=== PATIENT | male | born 1975 | race Caucasian/White ===

== ENCOUNTER 2024-01-02 16:09 | Outpatient (CLI) | payer OTHER, SELFPAY | END 2024-01-02 16:10 | disposition home or self-care (01) | LOC: SLEEP 16:13 | PROVIDERS: Visit Provider Family Medicine | DX: G47.33 Obstructive sleep apnea (adult) (pediatric) (principal) | CPT/HCPCS: G0399 ==

== ENCOUNTER 2024-05-24 16:39 | Emergency (ER) | payer OTHER, SELFPAY ==
[2024-05-24 17:24] VITALS: BP 152/98; PULSE 94; RESP 18; TEMP 36.7; O2SAT 100; BMI 32.3
--- NOTE | 2024-05-24 19:01 | W.ED.ANIMALB ---
HPI - Animal Bite General: Chief Complaint: Animal Bite Stated Complaint: bit by dog Time Seen by Provider: 05/24/24 18:59 Source: patient Mode of arrival: ambulatory Limitations: no limitations History of Present Illness: Patient is a nice 49-year-old male who presents to the ED today for evaluation following a dog bite. 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 He states he did contact the police and tried to contact the dog's homeowner association manager however was unsuccessful. He is unsure on the animal's immunization status. He states the animal seemed to be an outdoor pet. Patient's last tetanus is unknown. States bite did penetrate through the pants he was wearing. complaint: animal bite Onset (ago): hour(s) Animal: dog Description of animal: immunizations unknown Mechanism: bite Location: buttocks Associated symptoms: Reports no associated symptoms Related Data Previous Rx's ?Medication ?Instructions ?Recorded amoxicillin 875 mg-potassium 1 tab PO BID #14 tabs 05/24/24 clavulanate 125 mg tablet Allergies Allergy/AdvReac Type Severity Reaction Status Date / Time Sulfa (Sulfonamide Allergy Unknown Verified 05/24/24 17:26 Antibiotics) Review of Systems Skin/Breast: Reports: other (dog bite to R buttock) Physical Exam Const: COMMON NORMALS: no acute distress, average body habitus, patient oriented x3, no limitations, healthy appearing, alert and well nourished Back/Pelvis: BACK IMAGE (MALE):  1. small abrasion/minimal puncture wound; no closure indicated Neuro: COMMON NORMALS: patient oriented x3 SENSORIUM/ORIENTATION: Yes alert Skin: NARRATIVE SKIN EXAM: see above Course Vital Signs: Vital signs: Vital Signs Temperature 98.1 F 05/24/24 17:24 Pulse Rate 94 05/24/24 17:24 Respiratory Rate 18 05/24/24 17:24 Blood Pressure 152/98 05/24/24 17:24 Pulse Oximetry 100 05/24/24 17:24 Oxygen Delivery Me thod Room Air 05/24/24 17:24 MDM - Animal Bite Medical Decision Making Tetanus will be updated. He will be placed on prophylactic antibiotics. Immunization status of the animal is unknown. He does not know if the animal could be quarantined. We will start him on rabies PEP. Infection precautions discussed. 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 Differential Diagnosis Likely bite by animal and dog bite Medical Records I reviewed the patient's medical records. No radiology studies performed this visit Discharge Plan Discharge Patient Disposition: Home Clinical Impression: Dog bite of right buttock Qualifiers: Encounter type: initial encounter Qualified Code(s): S31.815A - Open bite of right buttock, initial encounter Condition: Stable Prescriptions: New amoxicillin-pot clavulanate 875-125 mg tablet 1 tab PO BID Qty: 14 0RF Discharge Orders: Discharge ED (Routine); Ordered 05/24/24 Ordered By: Lana Red Patient Instructions: Rabies Vaccine (By injection), Rabies Immune Globulin (By injection), Animal Bite (ED) Activity Restrictions/Additional Instructions: As we discussed, we will place you on prophylactic antibiotics to avoid infection. You were given a dose this evening as most pharmacies are closed. You will have a prescription that you can fill in the morning. Your tetanus has been updated. We have started you on rabies post-exposure prophylaxis. You should receive a schedule at time of discharge for your day 3, 7, and 14 shots to be completed at our infusion center. Print Language: [place] Zealander Coding Level of Care Code ED Atm Mechanic for Amilcar Dang
[2024-05-24] MEDS: rabies vaccine 2.5 unit SDV IM (19:39)
[2024-05-24] MEDS: rabies IG 300 unit/mL SDV 1 mL 2100 UNIT IM (19:40)
[2024-05-24] MEDS: amoxicillin-clav 875-125 mg Tablet 1 TAB PO (19:40)
[2024-05-24] MEDS: tetanus-dipt-pertussis 0.5 mL SDV IM (19:40)
== END 2024-05-24 19:57 | disposition home or self-care (01) ==
PROVIDERS: Emergency Provider Physician Assistant
DX: S31.815A Open bite of right buttock, initial encounter (principal); W54.0XXA Bitten by dog, initial encounter; Z23 Encounter for immunization; Z29.14 Encounter for prophylactic rabies immune globulin; Z20.3 Contact with and (suspected) exposure to rabies
CPT/HCPCS: 90375; 90471; 90675; 90715; 96372; 99283; J9999

== ENCOUNTER 2024-06-07 08:00 | Oncology outpatient (recurring) (ONCR) | payer OTHER, SELFPAY ==
[2024-05-27] MEDS: rabies vaccine 2.5 unit SDV IM (16:10)
[2024-05-31] MEDS: rabies vaccine 2.5 unit SDV IM (08:11)
[2024-05-31 08:13] VITALS: BP 147/82; PULSE 84; TEMP 36.3; O2SAT 96
[2024-06-07] MEDS: rabies vaccine 2.5 unit SDV IM (08:16)
[2024-06-07 08:17] VITALS: BP 146/88; PULSE 97; TEMP 36.6; O2SAT 98
== END 2024-06-12 23:59 | disposition home or self-care (01) ==
PROVIDERS: Visit Provider Physician Assistant
DX: Z23 Encounter for immunization; Z20.3 Contact with and (suspected) exposure to rabies; S31.815A Open bite of right buttock, initial encounter; W54.0XXA Bitten by dog, initial encounter; Y99.0 Civilian activity done for income or pay; Z53.9 Procedure and treatment not carried out, unspecified reason
CPT/HCPCS: 90471; 90675